=== PATIENT | female | born 1950 | race Caucasian/White ===

== ENCOUNTER 2018-09-22 13:50 | Emergency (ER) | payer MEDICARE ==
[~2018-09-22] VITALS: Ht 167.6 cm; Wt 79.4 kg
[2018-09-22] MEDS ORDERED: CELEXA20 MG PO (14:03)
[2018-09-22] MEDS ORDERED: PLAVIX 75 MG TA75 M1 PO (14:03)
[2018-09-22] MEDS ORDERED: HYDROCORTISONE3011 TOP (14:10)
[2018-09-22] MEDS ORDERED: MEDROLDOSEPACK PO (14:10)
[2018-09-22 14:33] VITALS: BP 128/72
== END 2018-09-22 14:34 | disposition home or self-care (01) ==
LOC: M.ERS 13:50
DX: L25.9 Unspecified contact dermatitis, unspecified cause (principal); Z88.1 Allergy status to other antibiotic agents; Z88.2 Allergy status to sulfonamides; Z96.651 Presence of right artificial knee joint; Z86.73 Personal history of transient ischemic attack (TIA), and cerebral infarction without residual deficits

== ENCOUNTER 2018-10-19 16:01 | Emergency (ER) | payer MEDICARE ==
[~2018-10-19] VITALS: Ht 165.1 cm; Wt 77.1 kg
[~2018-10-19 16:01] MED LIST: CELEXA20 MG PO; HYDROCORTISONE3011 TOP; MEDROLDOSEPACK PO; PLAVIX 75 MG TA75 M1 PO
[2018-10-19] MEDS ORDERED: HYDROXYZINE HCL25 M2 PO (16:45)
[2018-10-19 17:19] VITALS: BP 132/70
== END 2018-10-19 17:20 | disposition home or self-care (01) ==
LOC: M.ERS 16:01
DX: L23.7 Allergic contact dermatitis due to plants, except food (principal); Z88.1 Allergy status to other antibiotic agents; Z88.2 Allergy status to sulfonamides; Z86.73 Personal history of transient ischemic attack (TIA), and cerebral infarction without residual deficits